=== PATIENT | male | born 1965 | race Caucasian/White ===

== ENCOUNTER 2021-11-21 11:00 | Outpatient (RCR) | payer OTHER, SELFPAY ==
--- NOTE | 2021-11-14 13:14 | HP.PTEVAL ---
Patient's Visit Information ANNMARIE GARCIA is a 56 year old M referred to Physical Therapy by Dr. Liliam Carrero MD with a diagnosis of R shoulder pain. Date of Evaluation: 11/14/21 Physical Therapist: Ruben Rizvi, PT, ATC - Visit Plan Frequency: 1x/Week Duration: 2 Weeks Plan: Issue and instruct pt on HEP of rotator cuff and scap stab ex's 1-2 visits - Subjective Pt reports his R shoulder has been sore for a couple months. Pt reports he has rested it hoping the pain would go away, but it hasnt. Pt reports no Dx tests at this time. Pt is R hand dominant. Pt reports he has been taking the steroids which did actually help him to be able to sleep at night. Pt reports reaching overhead and behind his back increases pain. Pt also notes he cant throw his ball in the yard for his dog because of the pain. Pt reports he had been lifting weights 3 times a week, but actually stopped because of his shoulder pain. 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 2/10 pain at rest, 8/10 pain at worst. - Pain R shoulder Pain Intensity (Out of 10): 2 Pain Intensity Range: 8 - Objective Neuro: B UE sensation is WNL to light touch. B bicipital reflex= 2/3. Palpation: Pt is not sure with palpation of R shoulder. No obvious deformity present at this time. ROM: R shoulder flex= 150, abd= 140, ER 40, IR WFL; L shoulder flex= 115, abd= 105, ER= 55, IR WFL. MMT: R shoulder ER= 4/5. All other B UE MMT 5/5 throughout. Special tests: Pos impingements tests, pos empty can - Balance/Special Test Scores Quick DASH Score: 31.8175 - Goals Goal 1:: I with HEP 1-2 visits Goal Time Frame: 2 Weeks - Rehabilitation Potential Physical Therapy Diagnosis: Pt has R shoulder weakness, pain and limited ROM secondary to R shoulder rotator cuff syndrome Rehabilitation Potential: Good - Anticipated Interventions Patient/Client Instruction: Educate patient on: Condition, Plan of Care For the Purpose of:: To improve self management Therapeutic Exercise to Include: Strength training, Endurance training, Active ROM, Scapular Strength/Stabilization For the Purpose of:: To decrease pain, To increase ROM, To improve muscle performance and motor function Thank you for the opportunity to evaluate your patient. For Medicare and Medicare HMO plans, please review the plan of care and approve it. It will need to be FAXED BACK to us at [phone] for Medicare purposes. For Medicare only, by signing this I certify the plan of care. Please let me know if there are questions or concerns regarding this plan of care. Physician Signature: Date:
--- NOTE | 2022-01-05 12:44 | HP.PT.NRP ---
ANNMARIE GARCIA was seen in my office for initial evaluation on 11/14/21. The following Plan of Care was established for this patient: Initial Frequency: 1x/Week Initial Duration: 2 Weeks Patient/Client Instruction: Educate patient on: Condition, Plan of Care For the Purpose of:: To improve self management Therapeutic Exercise to Include: Strength training, Endurance training, Active ROM, Scapular Strength/Stabilization For the Purpose of:: To decrease pain, To increase ROM, To improve muscle performance and motor function This patient was last seen in our office . Pertinent comments regarding their Physical therapy will appear below: Pt was treated for 2 PT visits for shoulder pain through the date of 11/21/21. Pt has not returned through todays date and is discontinued at this time At this point I will be discontinuing this patient from physical therapy. I would be happy to see this patient again in the future if found appropriate by the physician. Thank you! Ruben Rizvi, PT, ATC Balance/Gait/Functional tests - Balance/Special Test Scores Quick DASH Score: 31.8175
== END 2021-11-21 19:00 | disposition home or self-care (01) ==
LOC: PT 11:00
PROVIDERS: PCP Family Medicine; Referring Provider Family Medicine; Visit Provider Family Medicine
DX: M25.519 Pain in unspecified shoulder (principal)
CPT/HCPCS: 97110; 97161